=== PATIENT | female | born 1960 | race Caucasian/White ===

== ENCOUNTER 2018-05-17 09:29 | Emergency (ER) | payer BC ==
[2018-05-17] MEDS ORDERED: Nitroglycerin 0.4 MG Tab.SL SL PRN (09:34)
[2018-05-17] MEDS ORDERED: Aspirin 81 MG Tab.Chew PO ONE (09:34)
--- NOTE | 2018-05-17 10:17 | EDM.PDOC ---
ED HPI GENERAL MEDICAL PROBLEM - General Chief Complaint: Chest Pain Stated Complaint: CHEST PAIN Time Seen by Provider: 05/17/18 10:12 Source of Information: Reports: Patient History Limitations: Reports: No Limitations - History of Present Illness INITIAL COMMENTS - FREE TEXT/NARRATIVE: pt arrived with pain in the left chest under the breast and today while she was at work walking around she developed pain in the jaw and neck area on both sides. She did not get sweaty. She just felt strange. Onset: Other (pt did have some chest pain. She does have a history of fibromyalgia and is uncomfortable alot. ) Duration: Hour(s): Location: Reports: Neck, Chest Associated Symptoms: Reports: Chest Pain headache Pain Score (Numeric/FACES): 4 - Related Data Allergies Allergy/AdvReac Type Severity Reaction Status Date / Time acetaminophen Allergy Rash Verified 05/17/18 09:44 [From Darvocet-N 100] bupropion HCl Allergy Agitation Verified 05/17/18 09:44 [From Wellbutrin] hydrocodone Allergy Rash Verified 05/17/18 09:44 hydromorphone HCl Allergy Rash Verified 05/17/18 09:44 [From Dilaudid] meperidine HCl [From Demerol] Allergy Rash Verified 05/17/18 09:44 metaxalone [From Skelaxin] Allergy Agitation Verified 05/17/18 09:44 morphine Allergy Itching Verified 05/17/18 09:44 propoxyphene napsylate Allergy Rash Verified 05/17/18 09:44 [From Darvocet-N 100] tramadol Allergy Rash Verified 05/17/18 09:44 Home Meds: Home Meds Calcium Carbonate [Calcium] 500 mg PO DAILY 02/13/13 [History] Cholecalciferol (Vitamin D3) [Vitamin D3] 5,000 unit PO DAILY 02/13/13 [History] Cyanocobalamin (Vitamin B12) [Vitamin B12] 1,000 mcg PO DAILY 02/13/13 [History] Cyanocobalamin (Vitamin B12) [Vitamin B12] 1,000 mcg SQ MO 02/13/13 [History] Escitalopram [Lexapro] 20 mg PO DAILY 02/13/13 [History] Metoprolol Succinate 25 mg PO DAILY 02/13/13 [History] Multivitamin [Multi Vitamin Daily] 1 each PO DAILY 02/13/13 [History] Omeprazole 20 mg PO DAILY 02/13/13 [History] Pregabalin [Lyrica] 100 mg PO BEDTIME 02/13/13 [History] hydroCHLOROthiazide [Hydrochlorothiazide] 25 mg PO DAILY 02/13/13 [History] Aspirin [Halfprin] 81 mg PO DAILY 11/25/15 [History] Cyclobenzaprine [Flexeril] 10 mg PO TID PRN 11/25/15 [History] Past Medical History HEENT History: Reports: Impaired Vision Cardiovascular History: Reports: Other (See Below) Other Cardiovascular History: palpapations 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: Musculoskeletal History: Reports: Other (See Below) Other Musculoskeletal History: right shoulder pain Psychiatric History: Reports: Depression Endocrine/Metabolic History: Reports: Diabetes, Type II Hematologic History: Reports: Anemia - Infectious Disease History Infectious Disease History: Reports: Chicken Pox - Past Surgical History GI Surgical History: Reports: Bariatric Procedure, Cholecystectomy, Colonoscopy , EGD Female Surgical History: Reports: Section, Hysterectomy Musculoskeletal Surgical History: Reports: Knee Replacement, Shoulder Surgery Social & Family History - Tobacco Use Smoking Status *Q: Never Smoker Second Hand Smoke Exposure: No - Caffeine Use Caffeine Use: Reports: Coffee - Recreational Drug Use Recreational Drug Use: No ED ROS GENERAL - Review of Systems Review Of Systems: See Below Constitutional: Reports: No Symptoms HEENT: Reports: No Symptoms Respiratory: Reports: No Symptoms Cardiovascular: Reports: Other (pt has had alot of palitations today. ) Endocrine: Reports: No Symptoms GI/Abdominal: Reports: No Symptoms : Reports: No Symptoms Musculoskeletal: Reports: Other (pt is having pain back by the left shoulder blade. ) Skin: Reports: No Symptoms Neurological: Reports: No Symptoms Psychiatric: Reports: No Symptoms ED EXAM, GENERAL - Physical Exam Exam: See Below Free Text/Narrative:: pt arrived feeling different today with somepain in the left chest and radiating to the neck. She was not sweaty. She was mildly sob. She did have some dioscomfort yesterday. Exam Limited By: No Limitations General Appearance: Alert, Anxious, Mild Distress, Other (pupils are equal and reactive. ) Ears: Normal TMs Nose: Normal Inspection Throat/Mouth: Normal Inspection Neck: Normal Inspection Respiratory/Chest: No Respiratory Distress Cardiovascular: Regular Rate, Rhythm, Other (pt did not have alot of ectopics during her monitoring. ) GI/Abdominal: Soft, Non-Tender (Female) Exam: Deferred Rectal (Female) Exam: Deferred Back Exam: Normal Inspection Extremities: Normal Inspection Neurological: Alert, Oriented, Normal Cognition Psychiatric: Normal Affect Course - Vital Signs Last Recorded V/S: Last Vital Signs Temp 36.0 C 05/17/18 09:54 Pulse 69 05/17/18 09:54 Resp 15 05/17/18 09:54 BP 140/88 05/17/18 09:54 Pulse Ox 98 05/17/18 09:54 - Orders/Labs/Meds Orders: Active Orders 24 hr Category Date Time Status EKG Documentation Completion [RC] ASDIRECTED Care 05/17/18 09:33 Active Nitroglycerin [Nitrostat] Med 05/17/18 09:34 Active 0.4 mg SL Q5M PRN EKG 12 Lead [EK] Routine Ther 05/17/18 09:33 Ordered Medication Orders Nitroglycerin (Nitrostat) 0.4 mg SL Q5M PRN PRN Reason: Chest Pain Labs: Laboratory Tests 05/17/18 05/17/18 05/17/18 Range/Units 09:41 09:41 09:41 WBC 7.5 (4.5-11.0) K/uL RBC 4.84 (3.30-5.50) M/uL Hgb 13.2 (12.0-15.0) g/dL Hct 40.4 (36.0-48.0) % MCV 84 (80-98) fL MCH 27 (27-31) pg MCHC 33 (32-36) % Plt Count 300 (150-400) K/uL Neut % (Auto) 50 (36-66) % Lymph % (Auto) 39 (24-44) % [place] % (Auto) 7 H (2-6) % Eos % (Auto) 3 (2-4) % Baso % (Auto) 1 (0-1) % Sodium 139 L (140-148) mmol/L Potassium 3.5 L (3.6-5.2) mmol/L Chloride 103 (100-108) mmol/L Carbon Dioxide 29 (21-32) mmol/L Anion Gap 10.5 (5.0-14.0) mmol/L BUN 11 (7-18) mg/dL Creatinine 0.9 (0.6-1.0) mg/dL Est Cr Clr Drug Dosing 63.55 mL/min Estimated GFR (MDRD) > 60 (>60) Glucose 128 H (74-106) mg/dL Calcium 8.8 (8.5-10.1) mg/dL Magnesium (1.8-2.4) mg/dL Total Bilirubin 0.6 (0.2-1.0) mg/dL AST 31 (15-37) U/L ALT 32 (12-78) U/L Alkaline Phosphatase 69 (46-116) U/L Troponin I < 0.017 (0.000-0.056) ng/mL Total Protein 6.4 (6.4-8.2) g/dL Albumin 3.5 (3.4-5.0) g/dL Globulin 2.9 (2.3-3.5) g/dL Albumin/Globulin Ratio 1.2 (1.2-2.2) TSH, Ultra Sensitive (0.358-3.740) uIU/mL Urine Color Urine Appearance Urine pH (4.5-8.0) Ur Specific [place] (1.008-1.030) Urine Protein (NEGATIVE) mg/dL Urine Glucose (UA) (NEGATIVE) mg/dL Urine Ketones (NEGATIVE) mg/dL Urine Occult Blood (NEGATIVE) Urine Nitrite (NEGATIVE) Urine Bilirubin (NEGATIVE) Urine Urobilinogen (NORMAL) mg/dL Ur Leukocyte Esterase (NEGATIVE) Urine RBC (0-5) Urine WBC (0-5) Ur Epithelial Cells Amorphous Sediment Urine Bacteria Urine Mucus 05/17/18 05/17/18 Range/Units 10:01 10:18 WBC (4.5-11.0) K/uL RBC (3.30-5.50) M/uL Hgb (12.0-15.0) g/dL Hct (36.0-48.0) % MCV (80-98) fL MCH (27-31) pg MCHC (32-36) % Plt Count (150-400) K/uL Neut % (Auto) (36-66) % Lymph % (Auto) (24-44) % [place] % (Auto) (2-6) % Eos % (Auto) (2-4) % Baso % (Auto) (0-1) % Sodium (140-148) mmol/L Potassium (3.6-5.2) mmol/L Chloride (100-108) mmol/L Carbon Dioxide (21-32) mmol/L Anion Gap (5.0-14.0) mmol/L BUN (7-18) mg/dL Creatinine (0.6-1.0) mg/dL Est Cr Clr Drug Dosing mL/min Estimated GFR (MDRD) (>60) Glucose (74-106) mg/dL Calcium (8.5-10.1) mg/dL Magnesium 1.9 (1.8-2.4) mg/dL Total Bilirubin (0.2-1.0) mg/dL AST (15-37) U/L ALT (12-78) U/L Alkaline Phosphatase (46-116) U/L Troponin I (0.000-0.056) ng/mL Total Protein (6.4-8.2) g/dL Albumin (3.4-5.0) g/dL Globulin (2.3-3.5) g/dL Albumin/Globulin Ratio (1.2-2.2) TSH, Ultra Sensitive 2.275 (0.358-3.740) uIU/mL Urine Color Yellow Urine Appearance Clear Urine pH 5.0 (4.5-8.0) Ur Specific [place] 1.015 (1.008-1.030) Urine Protein Negative (NEGATIVE) mg/dL Urine Glucose (UA) Normal (NEGATIVE) mg/dL Urine Ketones Negative (NEGATIVE) mg/dL Urine Occult Blood Negative (NEGATIVE) Urine Nitrite Negative (NEGATIVE) Urine Bilirubin Small (NEGATIVE) Urine Urobilinogen Normal (NORMAL) mg/dL Ur Leukocyte Esterase Moderate (NEGATIVE) Urine RBC Not seen (0-5) Urine WBC 5-10 H (0-5) Ur Epithelial Cells Few Amorphous Sediment Not seen Urine Bacteria Few Urine Mucus Few Meds: Medications Generic Name Dose Route Start Last Admin Trade Name Freq PRN Reason Stop Dose Admin Nitroglycerin 0.4 mg 05/17/18 09:34 Nitrostat SL Q5M PRN Chest Pain Discontinued Medications Generic Name Dose Route Start Last Admin Trade Name Freq PRN Reason Stop Dose Admin Aspirin 324 mg 05/17/18 09:34 05/17/18 10:01 Aspirin PO 05/17/18 09:35 324 mg ONETIME ONE Administration - Re-Assessments/Exams Free Text/Narrative Re-Assessment/Exam: 05/17/18 11:22 pt arrived with pain in the left chest radiating to her neck. She has a history of fibromyalgia so she sometimes has trouble seperating her pain. Departure - Departure Time of Disposition: 11:23 Disposition: Home, Self-Care 01 Condition: Fair Clinical Impression: Atypical chest pain, Fibromyalgia Referrals: PCP,None [Primary Care Provider] - Forms: ED Department Discharge Care Plan Goals: rtc for a lexiscan, rtc if this pain should get alot worse. - My Orders Last 24 Hours: My Active Orders 05/17/18 09:33 EKG Documentation Completion [RC] ASDIRECTED EKG 12 Lead [EK] Routine 05/17/18 09:34 Nitroglycerin [Nitrostat] 0.4 mg SL Q5M PRN - Assessment/Plan Last 24 Hours: My Active Orders 05/17/18 09:33 EKG Documentation Completion [RC] ASDIRECTED EKG 12 Lead [EK] Routine 05/17/18 09:34 Nitroglycerin [Nitrostat] 0.4 mg SL Q5M PRN
--- NOTE | 2018-05-17 10:24 | CRLCR ---
INDICATION: Chest and neck pain. COMPARISON: none TECHNIQUE: Portable AP erect chest performed at 9:53 a.m. FINDINGS: The lungs are clear. There is no evidence of pneumothorax or pneumomediastinum. The heart, mediastinum and pulmonary vessels are of normal size. There is no evidence of pleural fluid. IMPRESSION: Negative chest. Dictated by Shivam Myers MD @ 05/17/2018 10:22:21 AM Dictated by: Shivam Myers MD @ 05/17/2018 10:22:28 (Electronically Signed)
[2018-05-17 11:38] VITALS: BP 139/79
== END 2018-05-17 11:38 | disposition home or self-care (01) ==
LOC: JP.ED 09:29
DX: R07.89 Other chest pain (principal); M79.7 Fibromyalgia; E11.9 Type 2 diabetes mellitus without complications; F32.9 Major depressive disorder, single episode, unspecified; Z88.8 Allergy status to other drugs, medicaments and biological substances; Z88.5 Allergy status to narcotic agent; Z79.899 Other long term (current) drug therapy
CPT/HCPCS: 36415; 71045; 80053; 81001; 83735; 84443; 84484; 85025; 93005; 99285; A9270

== ENCOUNTER 2018-11-04 02:52 | Emergency (ER) | payer BC ==
[2018-11-04 03:08] VITALS: BP 153/72; PULSE 84
--- NOTE | 2018-11-04 03:19 | EDM.PDOC ---
ED HPI GENERAL MEDICAL PROBLEM - General Chief Complaint: Abdominal Pain Stated Complaint: LEFT SIDE FLANK PAIN Time Seen by Provider: 11/04/18 03:13 Source of Information: Reports: Patient, Family, RN Notes Reviewed History Limitations: Reports: No Limitations - History of Present Illness INITIAL COMMENTS - FREE TEXT/NARRATIVE: 58-year-old female presents to the emergency department today complaint of left flank pain. She states the pain started early this evening it does come and go gets very sharp stabbing in nature and then will return to dull ache no nausea no vomiting no history of nephrolithiasis flank Pain Score (Numeric/FACES): 6 - Related Data Allergies Allergy/AdvReac Type Severity Reaction Status Date / Time acetaminophen Allergy Rash Verified 11/04/18 03:05 [From Darvocet-N 100] bupropion HCl Allergy Agitation Verified 11/04/18 03:05 [From Wellbutrin] hydrocodone Allergy Rash Verified 11/04/18 03:05 hydromorphone HCl Allergy Rash Verified 11/04/18 03:05 [From Dilaudid] meperidine HCl [From Demerol] Allergy Rash Verified 11/04/18 03:05 metaxalone [From Skelaxin] Allergy Agitation Verified 11/04/18 03:05 morphine Allergy Itching Verified 11/04/18 03:05 oxycodone Allergy Rash Verified 11/04/18 03:05 propoxyphene napsylate Allergy Rash Verified 11/04/18 03:05 [From Darvocet-N 100] tramadol Allergy Rash Verified 11/04/18 03:05 Home Meds: Home Meds Calcium Carbonate [Calcium] 500 mg PO DAILY 02/13/13 [History] Cholecalciferol (Vitamin D3) [Vitamin D3] 5,000 unit PO DAILY 02/13/13 [History] Cyanocobalamin (Vitamin B12) [Vitamin B12] 1,000 mcg PO DAILY 02/13/13 [History] Cyanocobalamin (Vitamin B12) [Vitamin B12] 1,000 mcg SQ MO 02/13/13 [History] Escitalopram [Lexapro] 20 mg PO DAILY 02/13/13 [History] Metoprolol Succinate 25 mg PO DAILY 02/13/13 [History] Multivitamin [Multi Vitamin Daily] 1 each PO DAILY 02/13/13 [History] Omeprazole 20 mg PO DAILY 02/13/13 [History] Pregabalin [Lyrica] 100 mg PO BEDTIME 02/13/13 [History] hydroCHLOROthiazide [Hydrochlorothiazide] 25 mg PO DAILY 02/13/13 [History] Aspirin [Halfprin] 81 mg PO DAILY 11/25/15 [History] Cyclobenzaprine [Flexeril] 10 mg PO TID PRN 11/25/15 [History] Past Medical History HEENT History: Reports: Impaired Vision Cardiovascular History: Reports: Other (See Below) Other Cardiovascular History: palpapations 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 History: Reports: Other (See Below) Other Musculoskeletal History: right shoulder pain Psychiatric History: Reports: Depression Endocrine/Metabolic History: Reports: Diabetes, Type II Hematologic History: Reports: Anemia, Blood Transfusion(s) Other Hematologic History: blood transfusion - Infectious Disease History Infectious Disease History: Reports: Chicken Pox - Past Surgical History Other Cardiovascular Surgeries/Procedures: angiogram GI Surgical History: Reports: Bariatric Procedure, Cholecystectomy, Colonoscopy , EGD Female Surgical History: Reports: Section, Hysterectomy Musculoskeletal Surgical History: Reports: Knee Replacement, Shoulder Surgery Social & Family History - Tobacco Use Smoking Status *Q: Never Smoker - Caffeine Use Caffeine Use: Reports: Coffee, Soda - Recreational Drug Use Recreational Drug Use: No ED ROS GENERAL - Review of Systems Review Of Systems: See Below Constitutional: Denies: Fever, Chills HEENT: Reports: No Symptoms Respiratory: Reports: No Symptoms Cardiovascular: Reports: No Symptoms GI/Abdominal: Denies: Nausea : Reports: Flank Pain ED EXAM, GI/ABD - Physical Exam Exam: See Below Exam Limited By: No Limitations General Appearance: Alert, WD/WN, No Apparent Distress Respiratory/Chest: No Respiratory Distress, Lungs Clear, Normal Breath Sounds, No Accessory Muscle Use, Chest Non-Tender Cardiovascular: Regular Rate, Rhythm, No Murmur GI/Abdominal Exam: Normal Bowel Sounds, Soft, Tender (Left flank) Course - Vital Signs Last Recorded V/S: Last Vital Signs Temp 96.0 F 11/04/18 03:07 Pulse 84 11/04/18 03:07 Resp 20 11/04/18 03:07 BP 153/72 H 11/04/18 03:07 Pulse Ox 97 11/04/18 03:07 - Orders/Labs/Meds Labs: Laboratory Tests 09/11/04/18 11/04/18 Range/Units 03:18 03:30 03:30 WBC 6.7 (4.5-11.0) K/uL RBC 4.83 (3.30-5.50) M/uL Hgb 12.6 (12.0-15.0) g/dL Hct 40.4 (36.0-48.0) % MCV 84 (80-98) fL MCH 26 L (27-31) pg MCHC 31 L (32-36) % Plt Count 292 (150-400) K/uL Neut % (Auto) 43 (36-66) % Lymph % (Auto) 47 H (24-44) % [place] % (Auto) 6 (2-6) % Eos % (Auto) 4 (2-4) % Baso % (Auto) 1 (0-1) % Sodium 140 (140-148) mmol/L Potassium 3.7 (3.6-5.2) mmol/L Chloride 104 (100-108) mmol/L Carbon Dioxide 29 (21-32) mmol/L Anion Gap 7.1 (5.0-14.0) mmol/L BUN 8 (7-18) mg/dL Creatinine 0.8 (0.6-1.0) mg/dL Est Cr Clr Drug Dosing 70.66 mL/min Estimated GFR (MDRD) > 60 (>60) Glucose 195 H (74-106) mg/dL Calcium 8.0 L (8.5-10.1) mg/dL Total Bilirubin 0.6 (0.2-1.0) mg/dL AST 32 (15-37) U/L ALT 26 (12-78) U/L Alkaline Phosphatase 68 (46-116) U/L Total Protein 6.0 L (6.4-8.2) g/dL Albumin 3.2 L (3.4-5.0) g/dL Globulin 2.8 (2.3-3.5) g/dL Albumin/Globulin Ratio 1.1 L (1.2-2.2) Lipase 183 (73-393) U/L Urine Color Yellow (YELLOW) Urine Appearance Clear (CLEAR) Urine pH 6.0 (5.0-8.0) Ur Specific [place] 1.015 (1.008-1.030) Urine Protein Negative (NEGATIVE) mg/dL Urine Glucose (UA) Normal (NEGATIVE) mg/dL Urine Ketones Negative (NEGATIVE) mg/dL Urine Occult Blood Negative (NEGATIVE) Urine Nitrite Negative (NEGATIVE) Urine Bilirubin Negative (NEGATIVE) Urine Urobilinogen 0.2 (0.2-1.0) EU/dL Ur Leukocyte Esterase Trace H (NEGATIVE) Urine RBC 0-5 (0-5) Urine WBC 0-5 (0-5) Ur Epithelial Cells Few Amorphous Sediment Not seen Urine Bacteria Few Urine Mucus Not seen Meds: Medications Discontinued Medications Generic Name Dose Route Start Last Admin Trade Name Efraín PRN Reason Stop Dose Admin Ketorolac Tromethamine 60 mg 11/04/18 03:22 11/04/18 03:31 Toradol IM 11/04/18 03:23 60 mg ONETIME ONE Administration Departure - Departure Time of Disposition: 04:43 Disposition: Home, Self-Care 01 Condition: Fair Clinical Impression: Left flank pain - Discharge Information Referrals: Alee Pitts CNM [Primary Care Provider] - Forms: ED Department Discharge Additional Instructions: Use Tylenol or Motrin as needed for pain control, Please followup with your primary care provider in 3-5 days if not better, please call return to the emergency department with worsening of symptoms. - Assessment/Plan Plan: Assessment Acuity = acute Site and laterality = left flank pain Etiology = suspicious for muscle skeletal Manifestations = none Location of injury = Home Lab values = CBC, CMP, urinalysis unremarkable CT scan of the shows no acute process Plan She had good relief with the Toradol provided for pain control, she is going to use Tylenol Motrin as needed for pain control follow-up primary care 3-5 days if not better This note was dictated using [employer] voice recognition software please call with any questions on syntax or grammar.
[2018-11-04] MEDS ORDERED: Ketorolac 60 MG/2 ML SDV IM ONE (03:22)
--- NOTE | 2018-11-04 04:35 | CRLCT ---
INDICATION: Left flank pain TECHNIQUE: CT abdomen and pelvis without contrast. COMPARISON: None. FINDINGS: Lower chest: Unremarkable. Liver: Normal in size and attenuation. No masses. Gallbladder and bile ducts: Status post cholecystectomy. Pancreas: Unremarkable. No mass or inflammation. Spleen: Minimal splenic calcifications consistent with old granulomatous disease. Adrenal glands: Normal in size. No nodules. Kidneys: No evidence of hydronephrosis or nephrolithiasis. Exophytic left renal cyst measuring 9 millimeters. GI tract: Status post gastric bypass. No dilated loops of large or small intestine. Vasculature: Atherosclerosis without abdominal aortic aneurysm. Abdominal wall/Omentum/Peritoneum: Fat containing ventral hernia. Pelvis: Bladder unremarkable. Status post hysterectomy. Bones: Unremarkable for age. IMPRESSION: 1. No evidence of nephrolithiasis or hydronephrosis. 2. No dilated bowel or localized inflammation. 3. Fat containing ventral hernia. Please note that all CT scans at this facility use dose modulation, iterative reconstruction, and/or weight-based dosing when appropriate to reduce radiation dose to as low as reasonably achievable. Dictated by Justino Otero MD @ Nov 04 2018 4:25AM Signed by Dr. Justino Otero @ Nov 04 2018 4:32AM
== END 2018-11-04 04:56 | disposition home or self-care (01) ==
LOC: JP.ED 02:52
DX: R10.9 Unspecified abdominal pain (principal); F32.9 Major depressive disorder, single episode, unspecified; E11.9 Type 2 diabetes mellitus without complications; Z88.2 Allergy status to sulfonamides; Z90.710 Acquired absence of both cervix and uterus; Z79.899 Other long term (current) drug therapy; Z88.5 Allergy status to narcotic agent; Z79.82 Long term (current) use of aspirin; Z88.8 Allergy status to other drugs, medicaments and biological substances; Z90.49 Acquired absence of other specified parts of digestive tract
CPT/HCPCS: 36415; 74176; 80053; 81001; 83690; 85025; 96372; 99284; J1885

== ENCOUNTER 2020-02-24 16:21 | Emergency (ER) | payer BC ==
[2020-02-24 16:39] VITALS: BP 153/79; PULSE 71
--- NOTE | 2020-02-24 17:15 | EDM.PDOC ---
ED HPI GENERAL MEDICAL PROBLEM - General Chief Complaint: Lower Extremity Injury/Pain Stated Complaint: SLIPPED OM THE ICE, RIGHT UPPER LEG PAIN Time Seen by Provider: 02/24/20 17:00 Source of Information: Reports: Patient, Old Records, RN History Limitations: Reports: No Limitations - History of Present Illness INITIAL COMMENTS - FREE TEXT/NARRATIVE: 59 yo female fell about 6 hrs ago on the ice and now has medial R knee pain and R buttocks pain. Has a pHx of R knee replacement. Did not land on her knee. Took ibuprofen 600 mg for pain relief. Tried unsuccessfully to see Dr. Parrish today. 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 Right Knee Pain Score (Numeric/FACES): 10 - Related Data Allergies Allergy/AdvReac Type Severity Reaction Status Date / Time acetaminophen Allergy Rash Verified 02/24/20 16:42 [From Darvocet-N 100] bupropion HCl Allergy Agitation Verified 02/24/20 16:42 [From Wellbutrin] hydrocodone Allergy Rash Verified 02/24/20 16:42 hydromorphone HCl Allergy Rash Verified 02/24/20 16:42 [From Dilaudid] meperidine HCl [From Demerol] Allergy Rash Verified 02/24/20 16:42 metaxalone [From Skelaxin] Allergy Agitation Verified 02/24/20 16:42 morphine Allergy Itching Verified 02/24/20 16:42 oxycodone Allergy Rash Verified 02/24/20 16:42 propoxyphene napsylate Allergy Rash Verified 02/24/20 16:42 [From Darvocet-N 100] tramadol Allergy Rash Verified 02/24/20 16:42 Home Meds: Home Meds Calcium Carbonate [Calcium] 500 mg PO DAILY 02/13/13 [History] Cholecalciferol (Vitamin D3) [Vitamin D3] 5,000 unit PO DAILY 02/13/13 [History] Cyanocobalamin (Vitamin B12) [Vitamin B12] 1,000 mcg PO DAILY 02/13/13 [History] Cyanocobalamin (Vitamin B12) [Vitamin B12] 1,000 mcg SQ MO 02/13/13 [History] Metoprolol Succinate 25 mg PO DAILY 02/13/13 [History] Multivitamin [Multi Vitamin Daily] 1 each PO DAILY 02/13/13 [History] Omeprazole 20 mg PO DAILY 02/13/13 [History] Pregabalin [Lyrica] 100 mg PO BEDTIME 02/13/13 [History] Aspirin [Halfprin] 81 mg PO DAILY 11/25/15 [History] Cyclobenzaprine [Flexeril] 10 mg PO TID PRN 11/25/15 [History] DULoxetine HCl [Duloxetine HCl] 20 mg PO BEDTIME 02/24/20 [History] Liraglutide [Victoza] 1.8 mg SQ BEDTIME 02/24/20 [History] Pravastatin [Pravachol] 40 mg PO BEDTIME 02/24/20 [History] Past Medical History HEENT History: Reports: Impaired Vision Cardiovascular History: Reports: Hypertension, Other (See Below) Other Cardiovascular History: palpipations [employer] History: Reports: Musculoskeletal History: Reports: Fibromyalgia Other Musculoskeletal History: right shoulder pain Neurological History: Reports: Concussion Psychiatric History: Reports: Depression Endocrine/Metabolic History: Reports: Diabetes, Type II Hematologic History: Reports: Anemia, B12 Deficiency, Blood Transfusion(s) Other Hematologic History: blood transfusion - Infectious Disease History Infectious Disease History: Reports: Chicken Pox - Past Surgical History Other Cardiovascular Surgeries/Procedures: angiogram GI Surgical History: Reports: Bariatric Procedure, Cholecystectomy, Colonoscopy, EGD Female Surgical History: Reports: Section, Hysterectomy Musculoskeletal Surgical History: Reports: Arthroscopic Knee, Knee Replacement, Shoulder Surgery Social & Family History - Tobacco Use Tobacco Use Status *Q: Never Tobacco User - Caffeine Use Caffeine Use: Reports: Coffee - Recreational Drug Use Recreational Drug Use: No Review of Systems - Review of Systems Review Of Systems: See Below Constitutional: Reports: No Symptoms Musculoskeletal: Reports: Joint Pain (R knee), Other (R buttocks pain) Skin: Reports: No Symptoms Neurological: Reports: No Symptoms ED EXAM, GENERAL - Physical Exam Exam: See Below Exam Limited By: No Limitations General Appearance: Alert, WD/WN, No Apparent Distress, Obese Extremities: No Pedal Edema, Other (No obvious effusion, pain with stressing R MCL and to a lesser extent the R LCL. No ant/post laxity. Internal/external rotation of R hip is nontender. ). No: Non-Tender, Joint Swelling, Limited Range of Motion, Increased Warmth, Redness Neurological: Alert, Oriented, CN II-XII Intact, Normal Cognition, No Motor/Sensory Deficits Psychiatric: Normal Affect, Normal Mood Skin Exam: Warm, Dry, Intact, Normal Color, No Rash Course - Vital Signs Last Recorded V/S: Last Vital Signs Temp 35.6 C L 02/24/20 16:40 Pulse 71 02/24/20 16:40 Resp 16 02/24/20 16:40 BP 153/79 H 02/24/20 16:40 Pulse Ox 99 02/24/20 16:40 - Orders/Labs/Meds Orders: Active Orders 24 hr Category Date Time Status Knee 3V Rt [CR] Stat Exams 02/24/20 17:02 Ordered Pelvis 1V or 2V [CR] Stat Exams 02/24/20 17:09 Ordered - Radiology Interpretation Free Text/Narrative:: R knee X-rays-neg pelvis X-rays-neg Departure - Departure Time of Disposition: 17:30 Disposition: Home, Self-Care 01 Condition: Fair Clinical Impression: MCL sprain of right knee Qualifiers: Encounter type: initial encounter Qualified Code(s): S83.411A - Sprain of medial collateral ligament of right knee, initial encounter - Discharge Information *PRESCRIPTION DRUG MONITORING PROGRAM REVIEWED*: Not Applicable *COPY OF PRESCRIPTION DRUG MONITORING REPORT IN PATIENT CIRILO: Not Applicable Instructions: Knee Sprain, Adult, [id number] Referrals: Alee Pitts CNM [Primary Care Provider] - Forms: ED Department Discharge Additional Instructions: Wear KEKIO for support. Use your walker to take weight off that knee. F/U with Dr. Parrish. Sepsis Event Note (ED) - Evaluation Sepsis Screening Result: No Definite Risk - Focused Exam Vital Signs: Vital Signs Temp Pulse Resp BP Pulse Ox 02/24/20 16:40 35.6 C L 71 16 153/79 H 99 02/24/20 16:37 35.6 C L 71 16 153/79 H 99 - My Orders Last 24 Hours: My Active Orders 02/24/20 17:02 Knee 3V Rt [CR] Stat 02/24/20 17:09 Pelvis 1V or 2V [CR] Stat - Assessment/Plan Last 24 Hours: My Active Orders 02/24/20 17:02 Knee 3V Rt [CR] Stat 02/24/20 17:09 Pelvis 1V or 2V [CR] Stat
--- NOTE | 2020-02-25 09:11 | CR ---
Knee 3V Rt, Pelvis 1V or 2V CLINICAL HISTORY: Fall, pain FINDINGS: Patient has a 3 component total knee arthroplasty. Components appear well seated. No acute fracture or dislocation is noted. There are no osseous lesions. Impression: 3 component total knee arthroplasty appears intact No fracture Knee 3V Rt, Pelvis 1V or 2V CLINICAL HISTORY: Fall, pain FINDINGS: Upper pelvis is off the image field. No fractures identified. There is joint space narrowing in both hips. Proximal femurs appear intact. IMPRESSION: Limited study Osteoarthritis in both hips Negative for fracture
== END 2020-02-24 17:32 | disposition home or self-care (01) ==
LOC: JP.ED 16:21
DX: S83.411A Sprain of medial collateral ligament of right knee, initial encounter (principal); I10 Essential (primary) hypertension; E11.9 Type 2 diabetes mellitus without complications; Z88.5 Allergy status to narcotic agent; Z88.8 Allergy status to other drugs, medicaments and biological substances; Z79.82 Long term (current) use of aspirin; Z79.899 Other long term (current) drug therapy; W00.0XXA Fall on same level due to ice and snow, initial encounter
CPT/HCPCS: 72170; 72170-26; 73562-26-RT; 73562-RT; 99282; 99283

== ENCOUNTER 2022-05-30 05:53 | Day surgery (SDC) | payer BC ==
[2022-05-30] MEDS ORDERED: Dextrose 5%-Lactated Ringers 1,000 ML IV SCH (06:30)
[2022-05-30] MEDS ORDERED: Propofol 200 MG/20 ML SDV ONE ×2 (06:53→07:37)
[2022-05-30] MEDS ORDERED: fentaNYL 50 MCG/ML SDV ONE (06:54)
[2022-05-30] MEDS ORDERED: Midazolam 1 MG/ML 2 ML SDV ONE (06:54)
[2022-05-30] MEDS ORDERED: Glycopyrrolate 0.2 MG/ML 2 ML SDV IVPUSH ONE (07:00)
[2022-05-30 08:52] VITALS: BP 132/63; PULSE 71
== END 2022-05-30 08:55 | disposition home or self-care (01) ==
LOC: JP.SDS 05:53
PROVIDERS: ATTEND Surgery
DX: Z12.11 Encounter for screening for malignant neoplasm of colon (principal); K64.4 Residual hemorrhoidal skin tags; K57.30 Diverticulosis of large intestine without perforation or abscess without bleeding; K90.49 Malabsorption due to intolerance, not elsewhere classified; I10 Essential (primary) hypertension; Z98.84 Bariatric surgery status
CPT/HCPCS: 43235; 45378; J2250; J2704; J3010; J3490; J7121